=== PATIENT | male | born 1970 | race Caucasian/White ===

== ENCOUNTER → 2017-08-03 | Outpatient (CLI) | payer BC ==
[~2017-08-03] MED LIST: ROSU20TA PO; ZOLP10TA PO
[2017-08-03 12:19] LABS: HEMATOCRIT 45.5 % (42-52); MEAN CORPUSCULAR HEMOGLOBIN 32.9 pg (25-34); MEAN CORPUSCULAR HGB CONC 34.9 g/dl (32-36); PLATELET COUNT 264 K/uL (130-400); RED BLOOD COUNT 4.84 M/uL (4.7-6.1); WHITE BLOOD COUNT 6.88 K/uL (4.8-10.8)
[2017-08-03 13:17] LABS: BLOOD UREA NITROGEN 22 mg/dl (7-18); BUN/CREATININE RATIO 21.4 (10-20); CALCIUM 8.6 mg/dl (8.5-10.1); CARBON DIOXIDE 23 mmol/L (21-32); CHLORIDE 106 mmol/L (98-107); CHOLESTEROL 224 mg/dl (0-200); CREATININE 1.02 mg/dl (0.60-1.40); GLUCOSE,FASTING 97 mg/dl (70-99); SODIUM 140 mmol/L (136-145); TRIGLYCERIDES 226 mg/dl (0-150); VERY LOW DENSITY LIPOPROT CALC 45 mg/dl
[2017-08-03 13:38] LABS: CHOLESTEROL/HDL RATIO 5.6; HDL CHOLESTEROL 40 mg/dl; LDL CHOLESTEROL CALCULATED 139 mg/dl
== END | disposition home or self-care (01) ==
LOC: C.LABPBG 07:29
PROVIDERS: ATTEND Physician Assistant
DX: Z00.00 Encounter for general adult medical examination without abnormal findings (principal); Z13.21 Encounter for screening for nutritional disorder; R53.83 Other fatigue

== ENCOUNTER → 2017-08-31 | Outpatient (CLI) | payer BC ==
--- NOTE | 2017-09-01 06:24 | SPLIT NIGHT TECHNICIAN REPORT ---
[facility] Split Night Polysomnogram - Global Mobility Specialist Report Study date: 08/31/2017 Referring Physician: PETRA MOYA PA-C Name: ELTON SALAZAR Global Mobility Specialist: CHARANJIT Dowell. Date of : 1970 Height: 46 years, Height 5' 10" Sex: Male Weight: 242 lbs Age: 46 BMI: Medications: 34.72 EZETIMIBE 10 MG, LOVASTATIN 10 MG, ZOLPIDEM TARTRATE 10 MG Patient History PATIENT HAS HISTORY OF DEPRESSION, FATIGUE, LOW ENERGY, AND SNORING. ALSO HAS RESTLESS LEGS AND MIAH. PATIENT HAS WORN CPAP IN THE PAST BUT WAS NOT ABLE TO TOLERATE IT. HE IS HERE TODAY FOR AN EVALUATION FOR MIAH. ESS = 12 RM 5 Parameters Monitored NPSG: E1-M2, E2-M1, Fp1-M2, Fp2-M1, F3-M2, F4-M2, F4-M1, C3-M2, C4-M2, C4-M1, O1-M2, O2-M2, O2-M1, T3-M2, T4-M1, P3-M2, P4-M1, CHIN1, CHIN2, HR, EKG, Legs, PFLOW, SNOR, FLOW, CFLOW, Tidal Volume, THOR, ABDO, SpO2, PLTH, CPRESS, ETCO2 Wave, ETCO2, pH SLEEP SUMMARY DATA DIAGNOSTIC TREATMENT Lights Out: 9:20:20 PM 12:41:20 AM Lights On: 12:31:20 AM 5:52:50 AM Total Recording Time (TRT): 191.5 min. 312.0 min. Total Sleep Time (TST): 150.0 min. 219.5 min. NREM Time: 150.0 min. 181.0 min. REM Time: 0.0 min. 38.5 min. Sleep Period Time (SPT): 163.5 min. 280.5 min. Sleep Efficiency (SE): 79 % 70 % Sleep Latency: 27.5 min. 23.5 min. Arousal Index: 25.6 14.2 PAP Treatment Levels: 4, 7, 8, 11, 12 * Optimal Pressure(s) SLEEP STAGING DATA DIAGNOSTIC TREATMENT Duration (min) TST % Duration (min) TST % Stage Wake: 41.0 min. -- 92.5 min. -- WASO: 13.5 min. -- 61.0 min. -- NREM: 150.0 min. 100 % 181.0 min. 82 % Stage N1: 16.5 min. 11 % 39.5 min. 18 % Stage N2: 133.5 min. 89 % 141.5 min. 64 % Stage N3: 0.0 min. 0 % 0.0 min. 0 % REM: 0.0 min. 0 % 38.5 min. 18 % POSITIONAL DATA Event Count Index Event Count Index Supine: 84 50.6 4 2.1 Supine NREM: 84 50.6 4 2.6 Supine REM: N/A N/A 0 0 Non-Supine: 7 8.3 11 4.9 Non-Supine NREM: 7 8.3 10 5.4 Non-Supine REM: N/A N/A 1 2.6 AROUSAL SUMMARY DATA: Event Count Index Event Count Index Apnea Arousals: 2 3.6 0 0.3 Hypopnea Arousals: 11 4.4 5 1.4 Snore Arousals: 10 4.0 1 0.3 PLM Arousals: 27 10.8 7 1.9 Non-Specific Arousals: 12 4.8 38 10.4 Total Arousals: 64 25.6 52 14.2 MYOCLONUS (PLM) Event Count Index Event Count Index PLM: 234 93.6 38 10.4 PLM AROUSAL: 27 10.8 7 1.9 PLM W/O AROUSAL 234 93.6 31 8.5 PLM W/RESP EVENT 28 0.0 2 0.0 MYOCLONUS (PLM) Event Count Index Event Count Index LM: 5 20.4 12 3.3 LM AROUSAL: 5 2.0 2 0.5 LM W/O AROUSAL LM W/RESP EVENT LM NON SPECIFIC 205 82.0 39 10.7 HEART RATE DATA DIAGNOSTIC TREATMENT Sleep (bpm): 73 68 REM (bpm): N/A 94 NREM (bpm): 89 93 Tachycardia Count: 0 0 Tachycardia Duration: 0.00 0 Bradycardia Count: 0 0 Bradycardia Duration: 0.00 0 DIAGNOSTIC PORTION TREATMENT PORTION RESPIRATORY DATA Event Count Index Event Count Index AHI: -- 36.4 -- 3.8 RDI: -- 36.4 -- 4 Obstructive Apnea: 9 3.6 0 0.0 Central Apnea: 0 0.0 1 0.3 Mixed Apnea: 0 0.0 0 0.0 Hypopnea: 82 32.8 13 3.6 RERA: 0 0.0 1 0.3 Total Apneas: 9 3.6 1 0.3 RESPIRATORY DATA REM NREM SLEEP REM NREM SLEEP Supine Position: Obstructive Apneas: N/A 9 9 0 0 0 Central Apneas: N/A 0 0 0 0 0 Mixed Apneas: N/A 0 0 0 0 0 Hypopneas: N/A 75 75 0 3 3 RERA N/A 0 0 0 1 1 Total Supine Events: N/A 84 84 0 4 4 Supine AHI: N/A 50.6 50.6 0 2.6 2.1 Supine RDI: N/A 50.6 50.6 0.0 3.4 2.8 REM NREM SLEEP REM NREM SLEEP Non-Supine Position: Obstructive Apneas: N/A 0 0 0 0 0 Central Apneas: N/A 0 0 1 0 1 Mixed Apneas: N/A 0 0 0 0 0 Hypopneas: N/A 7 7 0 10 10 RERA N/A 0 0 0 0 0 Total Supine Events: N/A 7 7 1 10 11 Supine AHI: N/A 8.3 8.3 2.6 5.4 4.9 Supine RDI: N/A 8.3 8.3 2.6 5.4 4.9 OXYGEN DESTAURATION DATA: Event Count Index Event Count Index REM Desaturations: N/A N/A 0 0.0 NREM Desaturations: 93 37.2 15 5.0 SNORE DATA DIAGNOSTIC TREATMENT Snore Time: 33.6 1:04:50 AM Snore TST%: 12 1 Snore Arousal Count: 10 1 Snore Arousal Index: 4.0 0.3 Desaturation Event Summary: Minimum %SpO2 Event Count Mean/Min/Max Duration(sec.) Desaturation Index % Time In Bed > 90 106 21.9 / 8.5 / 54.3 28.5 61.6 86 - 90 56 18.5 / 8.5 / 33.5 25.8 35.9 81 - 85 0 N/A 0.0 2.3 76 - 80 0 N/A 0.0 0.2 71 - 75 0 N/A 0.0 0.0 66 - 70 0 N/A 0.0 0.0 61 - 65 0 N/A 0.0 0.0 56 - 60 0 N/A 0.0 0.0 51 - 55 0 N/A 0.0 0.0 < 50 0 N/A 0.0 0.0 OXYGEN SATURATION DATA DIAGNOSTIC TREATMENT SpO2 Mean Sleep: 89 % 93 % SpO2 Mean REM: N/A % 94 % SpO2 Mean NREM: 89 % 93 % SpO2 Minimum Sleep: 79 % 86 % SpO2 Minimum REM: N/A % 93 % SpO2 Minimum NREM: 79 % 86 % Time Below 90% (TST): 80.3 1.5 Time Below 88% (TST): 22.2 0.3 Total REM NREM Awake <50% 0.0 min. 0.0 min. 0.0 min. 0.0 min. 51 - 60% 0.0 min. 0.0 min. 0.0 min. 0.0 min. 61 - 70% 0.0 min. 0.0 min. 0.0 min. 0.0 min. 71 - 80% 0.6 min. 0.0 min. 0.5 min. 0.1 min. 81 - 90% 138.5 min. 0.0 min. 109.9 min. 28.6 min. 91 - 100% 223.5 min. 8.5 min. 139.8 min. 75.2 min. Average 91 94 91 92 Minimum SpO2 79 93 79 80 Desaturation Event Index 15.3 0.0 19.6 9.0 # Desat. Events below 89% 91 N/A 89 2 Time(%) with Saturation below 89% 14.7 0.0 13.2 1.5 Time(min.) with Saturation below 89% 53.2 0.0 47.7 5.5 Recording Global Mobility Specialist Comments: Mr. Salazar slept in the right, left and supine positions. No cardiac arrhythmia noted. Leg movements noted. No bruxism noted. Snoring was noted and scored as a 3 on a scale of 1 through 5. (0=no snoring, 5=snoring loud enough to be heard through a closed door or down the [address]) At 12:31 AM Mr. Salazar has met specific Split-Night criteria during the diagnostic portion of this study. CPAP was initiated at +4 CMH2O and up-titrated to an optimal level of +12VUB6O, which nearly eliminated all respiratory events and snoring. A Resmed Air touch F20 full face size large mask was used during titration Mr. Salazar awoke to use the restroom 0 times during the night. Mr. Salazar stated I slept as well as I do when I am in my own bed. The final report will be interpreted and signed by a sleep physician. The completed physician report will then be placed in the patient medical record. Therapy Event: Therapy (cm H20) 0 4 7 8 11 12 Total Time at Pressure (min.) 191.0 5.7 43.1 19.5 142.5 100.8 TST at Pressure (min.) 150.0 0.0 16.2 7.3 120.2 75.8 # Periods 1 1 1 1 1 1 Sleep Onset (min.) 27.5 N/A 17.8 0.0 3.8 0.0 REM Onset (min.) N/A N/A N/A N/A 96.8 N/A Sleep Efficiency % 78 0 37 37 84 75 Wakefulness (%) 21.5 100.0 62.3 62.8 15.6 24.8 Wakefulness (min.) 41.0 5.7 26.8 12.2 22.3 25.0 NREM 1 (%) 8.6 0.0 25.5 12.8 12.8 7.7 NREM 1 (min.) 16.5 0.0 11.0 2.5 18.2 7.8 NREM 2 (%) 69.9 0.0 12.2 24.4 44.6 67.5 NREM 2 (min.) 133.5 0.0 5.2 4.8 63.5 68.0 NREM 3 (%) 0.0 0.0 0.0 0.0 0.0 0.0 NREM 3 (min.) 0.0 0.0 0.0 0.0 0.0 0.0 REM (%) 0.0 0.0 0.0 0.0 27.0 0.0 REM (min.) 0.0 0.0 0.0 0.0 38.5 0.0 # Arousals 64 N/A 13 8 19 12 Arousal Index 25.6 N/A 48.0 66.1 9.5 9.5 # Snore 1,398 N/A 5 3 10 0 Snore Index 559.2 N/A 18.5 24.8 5.0 0.0 AHI 36.4 N/A 14.8 57.9 1.5 0.0 AHI Supine 50.6 N/A 45.5 N/A 0.0 0.0 AHI Non-Supine 8.3 N/A 4.9 57.9 1.8 0.0 NREM AHI 36.4 N/A 14.8 57.9 1.5 0.0 REM AHI N/A N/A N/A N/A 1.6 N/A RDI 36.4 N/A 14.8 57.9 1.5 0.8 # Obstructive 9 N/A 0 0 0 0 # Central Ap 0 N/A 0 0 1 0 # Mixed 0 N/A 0 0 0 0 # Hypopneas 82 N/A 4 7 2 0 RERAS 0 N/A 0 0 0 1 Total Respiratory Events 91 N/A 4 7 3 1 Time Below SpO2 89.00% (min.) 47.4 0.0 0.1 0.3 0.0 0.0 Mean NREM SpO2 (%) 89 N/A 93 93 94 0 Mean REM SpO2 (%) N/A N/A N/A N/A 94 N/A Mean Sleep SpO2 (%) 89 N/A 93 93 94 0 Min NREM SpO2 (%) 79 N/A 86 87 91 0 Min REM SpO2 (%) N/A N/A N/A N/A 93 N/A Position Supine (min.) 99.7 0.0 4.0 0.0 19.4 61.3 Position Non-supine (min.) 50.3 0.0 12.3 7.3 100.8 14.5 LM Index Sleep 114.0 N/A 70.2 82.7 8.0 4.0 LM Index NREM 114.0 N/A 70.2 82.7 11.7 4.0 LM Index REM N/A N/A N/A N/A 0.0 N/A Mean Heart Rate (bpm) 73 N/A 69 67 67 0 Min Heart Rate (bpm) 62 N/A 61 62 60 0
== END | disposition home or self-care (01) ==
LOC: C.NEUR 20:00
PROVIDERS: ATTEND Physician Assistant
DX: R53.83 Other fatigue (principal); G47.30 Sleep apnea, unspecified

== ENCOUNTER → 2017-12-08 | Outpatient (CLI) | payer BC ==
[~2017-12-08] VITALS: Ht 177.2 cm; Wt 103.6 kg
[2017-12-08 13:56] VITALS: BP 112/77; PULSE 79; Ht 177.2 cm; Wt 103.6 kg
== END | disposition home or self-care (01) ==
LOC: C.NEUR 13:22
PROVIDERS: ATTEND Internal Medicine Pulmonary Disease
DX: G47.30 Sleep apnea, unspecified (principal); G47.00 Insomnia, unspecified; R53.83 Other fatigue; F32.9 Major depressive disorder, single episode, unspecified

== ENCOUNTER 2020-01-15 13:54 | Inpatient (IN) ==
--- NOTE | 2020-01-15 14:11 | Emergency Department Note ---
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 Echo demonstrated normal LV function. He continues to have a Holter monitor with analysis pending. Of note, the patient does report approximately 9 days of a chronic dry cough with the constant sensation of always having to cough for which she was treated with levofloxacin by his PCP and is currently on Tessalon Perles but denies any improvement. 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 However, he denies any fevers, chills or body aches or flulike illness. Denies nausea, vomiting, diarrhea, urinary symptoms. Patient is not a smoker. On arrival the patient is in no acute distress, afebrile with stable vital signs. He does intermittently exhibit a dry cough with a subtle underlying wheeze however lungs are CTAB. EKG demonstrates no overt ST elevation or depression however T wave inversion in lead III and aVF of which aVF appears new compared to outpatient EKG on 11/20/2019. Chest x-ray is negative for acute process. WBC, H/H and platelets within normal limits. Chemistry without acidosis. LFTs unremarkable. Electrolytes unremarkable. Troponin elevated at 1.040. D-dimer within normal limits however given troponin elevation CT of the chest was performed and negative for PE or pneumonia. On reevaluation the patient reports that his symptoms have improved and are barely present. I did review the patient's results including his elevated troponin he was agreeable with plan for admi ssion. He was ordered for a full dose aspirin. Will defer heparin at this time and continue to trend troponins. The patient's repeat EKG was essentially unchanged with no overt ST elevation or depression. Unclear etiology to the patient's symptoms and elevated troponin at this time. A delta 3-hour troponin was ordered and is pending. Patiently, COVID-19 PCR was also ordered given his possible exposures as a military police officer. Case was discussed with [facility] with [facility] hospitalist who will evaluate the patient for admission. Triage Nursing notes reviewed and agree them. Prior medical records reviewed Vital Signs: reviewed and remarkable for HTN. Differential diagnosis: Cardiac ischemia, aortic dissection, pulmonary embolism, pneumothorax, pneumonia, pericarditis, myocarditis, esophageal rupture, GERD, cholecystitis, pancreatitis, musculoskeletal, as well as other pathologies. ER treatment provided: See below. Diagnostics interpreted by me: ECG: Normal sinus rhythm, 86 bpm, normal axis, no ectopy, T wave inversion in lead III and aVF, no overt ST elevation or depression, QTC 437, QRS 92. Cardiac Monitoring: An order for continuous cardiac monitoring was placed and demonstrated normal sinus rhythm, 86 bpm, no ectopy. Laboratory studies: See below Imaging studies: XR chest 1V portable HISTORY: Atypical Chest Pain COMPARISON: None. FINDINGS: The lungs are clear. Cardiac silhouette is normal in size. No pleural effusions. No pneumothorax. IMPRESSION: No acute process. 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 Echo demonstrated normal LV function. He continues to have a Holter monitor with analysis pending. Of note, the patient does report approximately 9 days of a chronic dry cough with the constant sensation of always having to cough for which she was treated with levofloxacin by his PCP and is currently on Tessalon Perles but denies any improvement. 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 However, he denies any fevers, chills or body aches or flulike illness. Denies nausea, vomiting, diarrhea, urinary symptoms. Patient is not a smoker. ROS: See above HPI for pertinent positives & negatives. A total of 10 systems reviewed and were otherwise negative. PAST MEDICAL HISTORY:See Below PAST SURGICAL HISTORY:See Below FAMILY HISTORY:See Below SOCIAL HISTORY:See Below HOME MEDICATIONS:See Below ALLERGIES:See Below VITALS:See Below PHYSICAL EXAMINATION: GENERAL: Awake, alert, well-appearing, in no distress HENT: Normocephalic, atraumatic. Oropharynx unremarkable. EYES: Normal conjunctiva. Sclera non-icteric. NECK: Supple. No nuchal rigidity. FROM. No JVD. RESPIRATORY: Clear to auscultation. CARDIAC: Regular rate, normal rhythm. Extremities warm and well perfused. Pulses equal. ABDOMEN: Soft, non-distended. No tenderness to palpation. No rebound or guarding. No masses. RECTAL: Deferred. MUSCULOSKELETAL: Chest examination reveals no tenderness. The back is symmetrical on inspection without obvious abnormality. There is no CVA tenderness to palpation. No joint edema. LOWER EXTREMITIES: Calves are equal size bilaterally and non-tender. No edema. No discoloration. NEURO: Normal sensorium. No sensory or motor deficits noted. SKIN: No rash or jaundice noted. Jose Bonilla MD Past Med/Surg History Medical History (Updated 01/15/20 @ 20:55 by Jose Bonilla MD) Benign essential hypertension (Acute) Hyperlipidemia (Acute) Lyme disease Obstructive sleep apnea (Acute) Surgical History S/P left knee arthroscopy S/P ORIF (open reduction internal fixation) fracture left femur Family History Grandfather (Paternal) Stroke Father Coronary heart disease Mother Osteoarthritis Social History Preferred Language: Pashto Communication Ability: Effective Visual Impairment: No Limitations Hearing Ability: Normal Circle Beveler Required: No Beliefs That Will Affect Care: Cheondoism Current Living Situation: Alone current occupational status: employed Other Information That Helps Us Care for You: No Feels Safe at Home: Yes Safety Concerns: Feels Safe At This Time Smoking Status: Never smoker Do You Dip or Chew Tobacco: No ; Second Hand Exposure: No ; Tobacco Cessation Education Requested by Patient: No Hx Alcohol Use: Yes Alcohol type: beer Hx Substance Use: No Childhood Exposure to Second-Hand Smoke: No caffeine: Yes (coffee) Dental Care, Regularly: Yes Physical Activity Frequency: 3-4 Times per Week Seatbelt Use: always Sunscreen Use: Yes Allergies Allergies Allergy/AdvReac Type Severity Reaction Status Date / Time No Known Drug Allergies Allergy Unknown Verified 01/15/20 14:25 Home Meds Home Medications Medication Instructions Recorded Confirmed lisinopril 10 mg PO DAILY 01/15/20 01/15/20 Previous Rx's Medication Instructions Recorded zolpidem 10 mg tablet 10 mg PO HS #30 tab 09/19/19 albuterol sulfate 90 mcg/actuation 1 - 2 puffs INH Q6H PRN #18 gm 12/03/19 aerosol inhaler lovastatin 20 mg tablet 20 mg PO DAILY #30 tab 12/10/19 pantoprazole 40 mg tablet,delayed 40 mg PO DAILY #90 tab 12/12/19 release guaifenesin 400 mg tablet 400 mg PO QID 7 Days #28 tab 01/07/20 loratadine 10 mg tablet 10 mg PO DAILY PRN #30 tab 01/07/20 benzonatate 200 mg capsule 200 mg PO TID PRN #20 cap 01/13/20 Results & Data (ED) Vital Signs Vital Signs - 24 hr 01/15/20 13:57 01/15/20 14:25 01/15/20 14:48 Temperature 36.7 C Temperature Source Oral Pulse Rate 96 H Pulse Rate from SpO2 Sensor Respiratory Rate 20 Blood Pressure 164/112 H Blood Pressure Mean 129 Blood Pressure Position Sitting Pulse Oximetry 98 96 95 Oxygen Delivery Method Room Air Room Air Room Air Sepsis Recent Fever Within 48 Hours No Sepsis New/Unexplained Change in Mental Status No Sepsis Action Taken by Nursing No Action Required 01/15/20 15:17 01/15/20 15:30 01/15/20 16:00 Temperature Temperature Source Pulse Rate 96 H 86 Pulse Rate from SpO2 Sensor 93 H 101 H 87 Respiratory Rate 20 22 22 Blood Pressure 146/93 H 128/97 131/90 Blood Pressure Mean 103 101 105 Blood Pressure Position Pulse Oximetry 97 98 94 Oxygen Delivery Method Sepsis Recent Fever Within 48 Hours Sepsis New/Unexplained Change in Mental Status Sepsis Action Taken by Nursing 01/15/20 16:30 01/15/20 17:02 01/15/20 17:30 Temperature Temperature Source Pulse Rate 87 84 85 Pulse Rate from SpO2 Sensor 86 85 85 Respiratory Rate 16 15 19 Blood Pressure 128/84 149/92 H 147/98 H Blood Pressure Mean 89 101 124 Blood Pressure Position Pulse Oximetry 95 98 98 Oxygen Delivery Method Sepsis Recent Fever Within 48 Hours Sepsis New/Unexplained Change in Mental Status Sepsis Action Taken by Nursing 01/15/20 18:00 Temperature Temperature Source Pulse Rate 84 Pulse Rate from SpO2 Sensor 84 Respiratory Rate 13 Blood Pressure 142/87 H Blood Pressure Mean 97 Blood Pressure Position Pulse Oximetry 95 Oxygen Delivery Method Sepsis Recent Fever Within 48 Hours Sepsis New/Unexplained Change in Mental Status Sepsis Action Taken by Nursing Laboratory Data Attestation: I reviewed the patient's lab results. Result diagrams: 01/15/20 15:17 01/15/20 15:17 Lab Results 01/15/20 01/15/20 01/15/20 Range/Units 15:17 15:17 15:17 WBC 9.61 (4.8-10.8) K/uL RBC 5.00 (4.7-6.1) M/uL Hgb 16.4 (14.0-18.0) g/dL Hct 47.3 (42-52) % MCV 94.6 (80-100) fL MCH 32.8 (25-34) pg MCHC 34.7 (32-36) g/dL RDW Std Deviation 44.2 (36.4-46.3) fL RDW Coeff of Miller 12.8 (11.5-14.5) % Plt Count 276 (130-400) K/uL MPV 10.3 (7.4-10.4) fL Immature Gran % (Auto) 0.3 % Neut % (Auto) 71.3 % Lymph % (Auto) 17.0 % Troup % (Auto) 7.3 % Eos % (Auto) 3.7 % Baso % (Auto) 0.4 % Immature Gran # (Auto) 0.03 H (0.00-0.02) K/uL Neut # (Auto) 6.85 H (1.4-6.5) K/uL Lymph # (Auto) 1.63 (1.2-3.4) K/uL Troup # (Auto) 0.70 H (0.11-0.59) K/uL Eos # (Auto) 0.36 (0-0.5) K/uL Baso # (Auto) 0.04 (0-0.2) K/uL PT 11.0 (9.0-12.0) Seconds INR 1.0 (0.9-1.1) APTT 29.7 (21.0-31.0) Seconds PTT Ratio 1.1 D-Dimer < 190 (0-500) ug/L FEU Sodium 139 (136-145) mmol/L Potassium 3.7 (3.5-5.1) mmol/L Chloride 104 (98-107) mmol/L Carbon Dioxide 28 (21-32) mmol/L Anion Gap 7.0 (3-11) BUN 16 (7-18) mg/dl Creatinine 1.12 (0.6-1.4) mg/dl Est Cr Clr Drug Dosing 96.3 ml/min Est GFR ( Amer) 88.3 Est GFR (Non-Af Amer) 76.2 BUN/Creatinine Ratio 14.4 (10-20) Glucose 165 H (70-99) mg/dl Calcium 9.1 (8.5-10.1) mg/dl Phosphorus 3.3 (2.5-4.9) mg/dl Magnesium 2.1 (1.8-2.4) mg/dl Total Bilirubin 0.6 (0.2-1) mg/dl Direct Bilirubin 0.1 (0-0.2) mg/dl AST 22 (15-37) U/L ALT 37 (12-78) U/L Alkaline Phosphatase 39 L (45-117) U/L Troponin I 1.040 H* (0-0.045) ng/ml Total Protein 7.3 (6.4-8.2) gm/dl Albumin 4.2 (3.4-5.0) gm/dl Globulin 3.1 (2.5-4.0) gm/dl Albumin/Globulin Ratio 1.4 (0.9-2) Lipase 97 (73-393) U/L Influenza Type A (PCR) (Neg) Influenza Type B (PCR) (Neg) 01/15/20 Range/Units 15:17 WBC (4.8-10.8) K/uL RBC (4.7-6.1) M/uL Hgb (14.0-18.0) g/dL Hct (42-52) % MCV (80-100) fL MCH (25-34) pg MCHC (32-36) g/dL RDW Std Deviation (36.4-46.3) fL RDW Coeff of Miller (11.5-14.5) % Plt Count (130-400) K/uL MPV (7.4-10.4) fL Immature Gran % (Auto) % Neut % (Auto) % Lymph % (Auto) % Troup % (Auto) % Eos % (Auto) % Baso % (Auto) % Immature Gran # (Auto) (0.00-0.02) K/uL Neut # (Auto) (1.4-6.5) K/uL Lymph # (Auto) (1.2-3.4) K/uL Troup # (Auto) (0.11-0.59) K/uL Eos # (Auto) (0-0.5) K/uL Baso # (Auto) (0-0.2) K/uL PT (9.0-12.0) Seconds INR (0.9-1.1) APTT (21.0-31.0) Seconds PTT Ratio D-Dimer (0-500) ug/L FEU Sodium (136-145) mmol/L Potassium (3.5-5.1) mmol/L Chloride (98-107) mmol/L Carbon Dioxide (21-32) mmol/L Anion Gap (3-11) BUN (7-18) mg/dl Creatinine (0.6-1.4) mg/dl Est Cr Clr Drug Dosing ml/min Est GFR ( Amer) Est GFR (Non-Af Amer) BUN/Creatinine Ratio (10-20) Glucose (70-99) mg/dl Calcium (8.5-10.1) mg/dl Phosphorus (2.5-4.9) mg/dl Magnesium (1.8-2.4) mg/dl Total Bilirubin (0.2-1) mg/dl Direct Bilirubin (0-0.2) mg/dl AST (15-37) U/L ALT (12-78) U/L Alkaline Phosphatase (45-117) U/L Troponin I (0-0.045) ng/ml Total Protein (6.4-8.2) gm/dl Albumin (3.4-5.0) gm/dl Globulin (2.5-4.0) gm/dl Albumin/Globulin Ratio (0.9-2) Lipase (73-393) U/L Influenza Type A (PCR) Neg for Influ A (Neg) Influenza Type B (PCR) Neg for Influ B (Neg) Administered Medications Discontinued Medications Aspirin (Aspirin) 324 mg PO NOW STA Stop: 01/15/20 17:40 Last Admin: 01/15/20 18:24 Dose: 324 mg Documented by: [id number] Dexamethasone Sodium Phosphate (Decadron Pf) 10 mg IV NOW ONE Stop: 01/15/20 14:43 Last Admin: 01/15/20 15:19 Dose: 10 mg Documented by: [id number] Sodium Chloride (Nss 1000ml) 1,000 mls @ 999 mls/hr IV .Q1H1M ONE Stop: 01/15/20 15:42 Last Infusion: 01/15/20 16:20 Dose: 0 mls/hr Documented by: [id number] Admin: 01/15/20 15:19 Dose: 999 mls/hr Documented by: [id number] Acetaminophen (Ofirmev) 1,000 mg in 100 mls @ 400 mls/hr IV NOW STA Stop: 01/15/20 14:56 Last Infusion: 01/15/20 15:35 Dose: 0 mls/hr Documented by: [id number] Admin: 01/15/20 15:19 Dose: 400 mls/hr Documented by: [id number] Ioversol (Optiray 320 125ml) 120 ml IV ONCE PRN PRN Reason: Interaction Checking Stop: 01/19/20 16:47 Last Admin: 01/15/20 16:49 Dose: 120 ml Documented by: [id number] Blood Pressure Blood Pressure Findings: Elevated blood pressure Discharge Plan Visit Data Chief Complaint: Chest Pain Stated Complaint: chest pain ED Provider: Jose Bonilla Discharge Problem: Elevated troponin, Atypical chest pain, Cough, History of hypertension Discharge Instructions Interventions: ED Discharge Assessment Last Done: 01/15/20 19:06
[2020-01-15] MEDS ORDERED: ACETAMINOPHEN 1,000 MG/100 ML VIAL IV STA (14:42)
[2020-01-15] MEDS ORDERED: DEXAMETHASONE **PF** INJ 10 MG/ML VIAL IV ONE (14:42)
[2020-01-15] MEDS ORDERED: SODIUM CHLORIDE 0.9% 1000ML 1,000 ML IV ONE (14:42)
--- NOTE | 2020-01-15 15:28 | Electrocardiogram Report ---
Test Reason : Blood Pressure : / mmHG Vent. Rate : 086 BPM Atrial Rate : 086 BPM P-R Int : 158 ms QRS Dur : 092 ms QT Int : 366 ms P-R-T Axes : 022 028 -15 degrees QTc Int : 437 ms Normal sinus rhythm Inferior infarct , age undetermined Abnormal ECG No previous ECGs available Confirmed by Kelvin Padilla ([id number]) on 01/15/2020 3:28:05 PM Referred By: Confirmed By:Kelvin Padilla
[2020-01-15 15:37] LABS: Basophils # (auto) 0.04 K/uL (0-0.2); Basophils % (auto) 0.4 %; Eosinophils # (auto) 0.36 K/uL (0-0.5); Eosinophils % (auto) 3.7 %; Hematocrit (blood only) 47.3 % (42-52); Hemoglobin 16.4 g/dL (14.0-18.0); Immature Granulocytes # (auto) 0.03 K/uL (0.00-0.02); Immature Granulocytes % (auto) 0.3 %; Lymphocytes # (auto) 1.63 K/uL (1.2-3.4); Mean Corpuscular Hemoglobin 32.8 pg (25-34); Mean Corpuscular Hgb Conc 34.7 g/dL (32-36); Mean Corpuscular Volume 94.6 fL (80-100); Mean Platelet Volume 10.3 fL (7.4-10.4); Monocytes % (auto) 7.3 %; Neutrophils # (auto) 6.85 K/uL (1.4-6.5); Neutrophils % (auto) 71.3 %; Platelet Count 276 K/uL (130-400); RDW Coefficient of Variation 12.8 % (11.5-14.5); RDW Standard Deviation 44.2 fL (36.4-46.3); White Blood Count 9.61 K/uL (4.8-10.8)
--- NOTE | 2020-01-15 15:38 | XRay Report ---
XR chest 1V portable HISTORY: Atypical Chest Pain COMPARISON: None. FINDINGS: The lungs are clear. Cardiac silhouette is normal in size. No pleural effusions. No pneumot horax. IMPRESSION: No acute process. ACT 112: Negative or not required by law. Electronically signed by: Shahram Hines M.D. 01/15/2020 3:36 PM
[2020-01-15 15:59] LABS: Albumin Level 4.2 gm/dl (3.4-5.0); BUN Creatinine Ratio 14.4 (10-20); Bilirubin Direct 0.1 mg/dl (0-0.2); Calcium 9.1 mg/dl (8.5-10.1); Creatinine Clr Calc Pharmacy 96.3 ml/min; Est GFR (African American) 88.3; Est GFR (Non-African American) 76.2; Magnesium 2.1 mg/dl (1.8-2.4); Potassium 3.7 mmol/L (3.5-5.1)
[2020-01-15 16:06] LABS: Albumin Globulin Ratio 1.4 (0.9-2); Bilirubin,Total 0.6 mg/dl (0.2-1); Globulin 3.1 gm/dl (2.5-4.0); Phosphorus 3.3 mg/dl (2.5-4.9); Total Protein 7.3 gm/dl (6.4-8.2); Troponin I 1.04 ng/ml (0-0.045)
[2020-01-15 16:16] LABS: Influenza A virus by PCR Neg for Influ A (Neg); Influenza B virus by PCR Neg for Influ B (Neg)
[2020-01-15 16:18] LABS: D Dimer < 190 ug/L FEU (0-500); Partial Thromboplastin Ratio 1.1; Partial Thromboplastin Time 29.7 Seconds (21.0-31.0)
[2020-01-15] MEDS ORDERED: OPTIRAY 320 125ml IV PRN (16:48)
--- NOTE | 2020-01-15 17:16 | CT Scan Report ---
CT ANGIOGRAPHY OF THE CHEST, PULMONARY EMBOLUS PROTOCOL CLINICAL HISTORY: PE - elevated troponin, Covid pending COMPARISON STUDY: Chest radiograph performed earlier today. TECHNIQUE: Following IV administration of 120 mL of Optiray-[id number], helical axial images of the chest we re obtained utilizing the pulmonary embolus protocol. Maximal intensity projections and sagittal and coronal reformats were viewed on an independent 3D workstation. IV contrast was administered withou t complication. Automated exposure control was utilized for the study. A dose lowering technique wa s utilized adhering to the principles of ALARA. CT DOSE: 535.32 mGycm FINDINGS: No pulmonary emboli are identified. There is no evidence for thoracic aortic dissection. T he size of the heart is normal. There is no pericardial effusion. No enlarged axillary, mediastinal o r hilar lymph nodes are present. The central airways are patent. There is no pneumothorax or pleural effusion. There is no consolidation. There are no suspicious pulmonary nodules. Several thyroid nodul es measure up to 1.8 cm. Bony thorax and upper abdomen are unremarkable. IMPRESSION: 1. No pulmonary emboli identified. 2. No acute findings within the chest. ACT 112: Negative or not required by law. Electronically signed by: Blu Malin M.D. 01/15/2020 5:15 PM
[2020-01-15] MEDS ORDERED: ASPIRIN CHEW 324 MG PO STA (17:39)
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
[2020-01-15] MEDS ORDERED: BENZONATATE 100 MG CAPSULE PO PRN (19:45)
[2020-01-15] MEDS ORDERED: ALBUTEROL HFA 8 GM INHALER INH PRN (19:45)
[2020-01-15] MEDS ORDERED: ALUMINUM/MAGNESIUM SUSP 30 ML UDC PO PRN (19:45)
[2020-01-15] MEDS ORDERED: HEPARIN SODIUM/DEXTROSE 25,000 UNITS/500 ML BAG IV SCH (19:45)
[2020-01-15] MEDS ORDERED: Heparin Adult STANDARD Wt-Based Dextrose 5% 25,000 units/500 mL IV SCH (20:00)
[2020-01-15] MEDS ORDERED: METOPROLOL TARTRATE 25 MG TAB PO ONE (20:15)
[2020-01-15] MEDS ORDERED: HEPARIN IV BOLUS 7,000 UNITS in SYRINGE 0 ML IV ONE (20:15)
[2020-01-15] MEDS: METOPROLOL TARTRATE 25 MG TAB PO SCH (21:12)
[2020-01-15] MEDS: SODIUM CHLORIDE 0.65% NA SOLN 45 ML (OCEAN) SCH (21:12)
[2020-01-15] MEDS: FLUTICASONE PROPIONATE NA SPR 16 GM BTL SCH (21:16)
[2020-01-15] MEDS: ZOLPIDEM TARTRATE 10 MG TAB PO PRN (21:47)
[2020-01-16 03:56] LABS: Hematocrit (blood only) 44.3 % (42-52); Hemoglobin 15.7 g/dL (14.0-18.0); Mean Corpuscular Hemoglobin 33.3 pg (25-34); Mean Corpuscular Hgb Conc 35.4 g/dL (32-36); Mean Corpuscular Volume 93.9 fL (80-100); Mean Platelet Volume 10.3 fL (7.4-10.4); Platelet Count 306 K/uL (130-400); RDW Coefficient of Variation 12.6 % (11.5-14.5); RDW Standard Deviation 43.4 fL (36.4-46.3); Red Blood Count 4.72 M/uL (4.7-6.1); White Blood Count 16.28 K/uL (4.8-10.8)
[2020-01-16 04:13] LABS: BUN Creatinine Ratio 15.3 (10-20); Calcium 8.8 mg/dl (8.5-10.1); Creatinine Clr Calc Pharmacy 97.9 ml/min; Est GFR (African American) 91.2; Est GFR (Non-African American) 78.7; Magnesium 1.9 mg/dl (1.8-2.4); Potassium 4.1 mmol/L (3.5-5.1)
[2020-01-16 04:25] LABS: Partial Thromboplastin Time 84.6 Seconds (21.0-31.0); Troponin I 19.2 ng/ml (0-0.045)
[2020-01-16] MEDS: PANTOprazole 40 MG TAB PO SCH (08:22)
[2020-01-16] MEDS: lisinopriL 10 MG TAB PO SCH (08:22)
[2020-01-16] MEDS: METOPROLOL TARTRATE 25 MG TAB PO SCH ×2 (08:22→21:16)
[2020-01-16] MEDS: FLUTICASONE PROPIONATE NA SPR 16 GM BTL SCH ×2 (08:22→21:16)
[2020-01-16] MEDS: ATORVASTATIN 40 MG TAB PO SCH (08:23)
[2020-01-16] MEDS: SODIUM CHLORIDE 0.65% NA SOLN 45 ML (OCEAN) SCH ×2 (08:24→21:16)
[2020-01-16] MEDS ORDERED: LOVASTATIN 20 MG TAB PO SCH ×2 (09:00)
[2020-01-16] MEDS ORDERED: fentaNYL citrate 100 MCG/2 ML VIAL ONE ×2 (09:19→14:03)
[2020-01-16] MEDS ORDERED: MIDAZOLAM HCL 1 MG/ML 2ML VIAL ONE ×2 (09:19→14:03)
[2020-01-16] MEDS ORDERED: NITROGLYCERIN/D5W 100MCG/ML 20ML SYR ONE (09:20)
[2020-01-16] MEDS ORDERED: HEPARIN (PORCINE) 1000 UNIT/ML 10 ML (CATH LAB USE ONLY) ONE (09:21)
[2020-01-16] MEDS ORDERED: TICAGRELOR 90 MG TAB PO ONE ×2 (10:09→15:05)
[2020-01-16] MEDS ORDERED: NOREPINEPHRINE BITARTRATE 1 MG/ML 4 ML VIAL (CATH LAB USE ONLY) ONE (10:29)
--- NOTE | 2020-01-16 10:49 | Cardiology Consultation ---
Date of Consultation January 16, 2020 Assessment & Plan (1) Elevated troponin: Mr. Salazar is a 49-year-old male with a history of Hypertension, Dyslipidemia (on nursing home statin therapy), Moderate Concentric LVH, Sleep Apnea on CPAP, Anxiety/Depression, and Insomnia who has been experiencing an intermittent, non exertional, and atypical chest pressure / squeezing pain off and on for the past 6 to weeks. His exercise and exertional tolerances have remained stable, and his chest discomfort is not worsened with exertion or activity. It is not positional nor is it pleuritic. He has no associated symptoms with the chest discomfort. 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 He had a Negative Stress Echocardiogram on 12/11/2019 at 88% maximum predicted heart rate, and demonstrated good exercise tolerance during that stress test. His cardiac risk factors include gender, hypertension, dyslipidemia, and a strong family history of CAD. As his initial Troponin I was elevated and has trended up to 19.200 ng/ml -- further evaluation is required. Patient will undergo Cardiac Catheterization / Coronary Angiography later today. He is currently NPO. We discussed the risks, benefits, and potential outcomes cardiac catheterization. We discussed how the procedure is done as well. Patient verbalized understanding of this discussion, and all of his questions were answered to his satisfaction. Recommend the following: -- Continue Atorvastatin and would recommend increasing to 80 mg daily. -- Continue Lopressor 25 mg b.i.d.. -- Continue Lisinopril 10 mg daily. -- Start Aspirin 81 mg daily. -- Further medication adjustments will be made pending cardiac catheterization results. -- Continue Heparin drip for the time being. (2) LVH (left ventricular hypertrophy): -- Maintain a well controlled BP with medications as outlined above. -- Adjust as necessary to maintain a SBP < 130 mmHg. -- Maintain a low-sodium diet. -- Continue aerobic exercise program. (3) Hyperlipidemia: -- Continue Atorvastatin and would recommend increasing to 80 mg daily. (4) Hypertension, essential: Patient was hypertensive on admission, however his BP looks well controlled today. -- Continue antihypertensive medications and adjust accordingly in order to maintain an average SBP between 115 to 130 mmHg. Supervising Physician Co-Signing Physician Notes Patient seen and examined. Agree with assessment and plan as outlined by ISAC Mccauley. Covid-19 negative. Plan to proceed to quality assurance lab technician for coronary angiography. Discussed risk, benefits and alternatives of procedure with patient. History of Present Illness Reason for Consultation: -- Elevated Troponin I. -- Atypical Chest Pain x 6 to 7 weeks. Requesting Physician: Devyn Bains MD Attending Physician: Kelvin Padilla MD History of Present Illness Mr. Salazar is a 49-year-old male with a history of Hypertension, Dyslipidemia (on nursing home statin therapy), Moderate Concentric LVH, Sleep Apnea on CPAP, Anxiety/Depression, and Insomnia who has been experiencing an intermittent chest pressure off and on for the past 6 to weeks. Patient is physically active on a daily basis -- he typically hikes up a mountain and his route is approximately 5.5 miles at least every other day, does push-ups, etc -- and his exercise tolerance has been stable during despite the onset of his atypical chest pain. He describes his left chest pain as a pressure or a squeezing pain -- which does not radiate, and is without associated symptoms. He notices it most often when he is at a state of rest. It does not worsen with activities or exercise. He denies any associated nausea, vomiting, diaphoresis, or dyspnea. His chest discomfort is not positional nor is it pleuritic. The chest discomfort can last 1 to 2 hours or longer. Approximately 2 days ago, the patient cut down 2 trees and cleared up the area by himself without chest discomfort or any limiting cardiopulmonary symptoms. What prompted him to come in to the hospital yesterday was a sharp chest pain and his shoulders and upper back were aching -- which he suspected was secondary to all the work he did clearing those trees. He did not have any associated symptoms with this, specifically denying any associated nausea, vomiting, diaphoresis, or dyspnea. Patient reports that he has had sinus congestion, mild cough, and a headache over the past 9 weeks -- and he has been treated with 3 different antibiotic courses as well as prednisone by his PCP. Patient's EKGs thus far show no acute changes. However his troponin I level has trended upward and is > 19 ng/ml. He will have a cardiac catheterization later today. STRESS ECHOCARDIOGRAM 12/11/2019: -- No Evidence of myocardial ischemia by EKG or Echocardiographic criteria. -- Exercised for 9 minutes and 26 seconds on standard Harsha protocol. -- Achieved 88% MPHR and 10.1 MET workload. -- Normal hemodynamic response to exercise. -- Normal LV size, wall motion, and systolic function. -- LVEF at rest 60%. -- Moderate concentric LVH. -- Trace MR. -- Trace PI. -- Normal RV size and function. Allergies Allergy/AdvReac Type Severity Reaction Status Date / Time No Known Drug Allergies Allergy Unknown Verified 01/15/20 14:25 Home Medications Home Medications Medication Instructions Recorded Confirmed Type zolpidem 10 mg tablet 10 mg PO HS #30 tab 09/19/19 01/15/20 Rx albuterol sulfate 90 mcg/actuation 1 - 2 puffs INH Q6H PRN #18 gm 12/03/19 01/15/20 Rx aerosol inhaler lovastatin 20 mg tablet 20 mg PO DAILY #30 tab 12/10/19 01/15/20 Rx pantoprazole 40 mg tablet,delayed 40 mg PO DAILY #90 tab 12/12/19 01/15/20 Rx release guaifenesin 400 mg tablet 400 mg PO QID 7 Days #28 tab 01/07/20 01/15/20 Rx loratadine 10 mg tablet 10 mg PO DAILY PRN #30 tab 01/07/20 01/15/20 Rx benzonatate 200 mg capsule 200 mg PO TID PRN #20 cap 01/13/20 01/15/20 Rx lisinopril 10 mg PO DAILY 01/15/20 01/15/20 History Patient History Medical History Benign essential hypertension (Acute) Hyperlipidemia (Acute) Lyme disease Obstructive sleep apnea (Acute) Surgical History S/P left knee arthroscopy S/P ORIF (open reduction internal fixation) fracture left femur Family History Grandfather (Paternal) Stroke Father Coronary heart disease Mother Osteoarthritis Social History Preferred Language: Russian Communication Ability: Effective Visual Impairment: No Limitations Hearing Ability: Normal 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 Beliefs That Will Affect Care: Confucianist Current Living Situation: Alone current occupational status: employed Other Information That Helps Us Care for You: No Feels Safe at Home: Yes Safety Concerns: Feels Safe At This Time Smoking Status: Never smoker Do You Dip or Chew Tobacco: No ; Second Hand Exposure: No ; Tobacco Cessation Education Requested by Patient: No Hx Alcohol Use: Yes Alcohol type: beer Hx Substance Use: No Childhood Exposure to Second-Hand Smoke: No caffeine: Yes (coffee) Dental Care, Regularly: Yes Physical Activity Frequency: 3-4 Times per Week Seatbelt Use: always Sunscreen Use: Yes Physical Exam Physical Exam: GENERAL: Patient in no acute distress. HEENT: Head is atraumatic, normocephalic. EOM's intact. Facies symmetric. No perioral cyanosis. NECK: No JVD. JVP is at the level of the clavicle sitting upright. Carotid upstrokes are + 2 bilaterally. No bruits are noted. CHEST/LUNGS: Clear to auscultation throughout all lung johns. No wheezes, rales, or crackles. CVS: S1 and S2 are regular without murmurs, gallops, or rubs. PMI is nondisplaced. No lifts, heaves, or thrills. No abdominal aortic or renal bruits. ABDOMINAL EXAM: Bowel sounds are present. No masses, organomegaly, or tenderness. EXTREMITIES: No clubbing or cyanosis. No edema. Intact posterior tibial and radial pulses bilaterally. Rommel's test positive for both ulnar and radial reflow at the right wrist and hand. NEUROLOGIC EXAM: Patient is awake, alert, and oriented. Pleasant and cooperative. Answers questions appropriately. Speech is clear. Normal movement in all 4 extremities. Gait pattern is unremarkable. Cardiac Catheterization is pending. Telemetry monitoring shows sinus rhythm. No arrhythmias noted. Results & Data ([facility]) Vital Signs (Past 12 Hours) Vital Signs Temp Pulse Resp BP Pulse Ox 01/16/20 08:01 36.6 C 88 20 113/68 95 01/16/20 04:05 36.5 C 89 18 118/79 96 01/15/20 23:14 36.4 C L 87 16 113/76 96 Laboratory Results Laboratory Results - last 24 hr 01/15/20 01/15/20 01/15/20 15:17 15:17 15:17 WBC 9.61 RBC 5.00 Hgb 16.4 Hct 47.3 MCV 94.6 MCH 32.8 MCHC 34.7 RDW Std Deviation 44.2 RDW Coeff of Miller 12.8 Plt Count 276 MPV 10.3 Immature Gran % (Auto) 0.3 Neut % (Auto) 71.3 Lymph % (Auto) 17.0 Woodward % (Auto) 7.3 Eos % (Auto) 3.7 Baso % (Auto) 0.4 Immature Gran # (Auto) 0.03 H Neut # (Auto) 6.85 H Lymph # (Auto) 1.63 Woodward # (Auto) 0.70 H Eos # (Auto) 0.36 Baso # (Auto) 0.04 PT 11.0 INR 1.0 APTT 29.7 PTT Ratio 1.1 D-Dimer < 190 Sodium 139 Potassium 3.7 Chloride 104 Carbon Dioxide 28 Anion Gap 7.0 BUN 16 Creatinine 1.12 Est Cr Clr Drug Dosing 96.3 Est GFR ( Amer) 88.3 Est GFR (Non-Af Amer) 76.2 BUN/Creatinine Ratio 14.4 Glucose 165 H Calcium 9.1 Phosphorus 3.3 Magnesium 2.1 Total Bilirubin 0.6 Direct Bilirubin 0.1 AST 22 ALT 37 Alkaline Phosphatase 39 L Troponin I 1.040 H* Total Protein 7.3 Albumin 4.2 Globulin 3.1 Albumin/Globulin Ratio 1.4 Lipase 97 Influenza Type A (PCR) Influenza Type B (PCR) SARS-CoV-2 RNA (RT-PCR) 01/15/20 01/15/20 01/15/20 15:17 15:17 18:23 WBC RBC Hgb Hct MCV MCH MCHC RDW Std Deviation RDW Coeff of Miller Plt Count MPV Immature Gran % (Auto) Neut % (Auto) Lymph % (Auto) Woodward % (Auto) Eos % (Auto) Baso % (Auto) Immature Gran # (Auto) Neut # (Auto) Lymph # (Auto) Woodward # (Auto) Eos # (Auto) Baso # (Auto) PT INR APTT PTT Ratio D-Dimer Sodium Potassium Chloride Carbon Dioxide Anion Gap BUN Creatinine Est Cr Clr Drug Dosing Est GFR ( Amer) Est GFR (Non-Af Amer) BUN/Creatinine Ratio Glucose Calcium Phosphorus Magnesium Total Bilirubin Direct Bilirubin AST ALT Alkaline Phosphatase Troponin I 3.610 H* Total Protein Albumin Globulin Albumin/Globulin Ratio Lipase Influenza Type A (PCR) Neg for Influ A Influenza Type B (PCR) Neg for Influ B SARS-CoV-2 RNA (RT-PCR) Pending 01/15/20 01/16/20 01/16/20 21:48 03:37 03:37 WBC 16.28 H RBC 4.72 Hgb 15.7 Hct 44.3 MCV 93.9 MCH 33.3 MCHC 35.4 RDW Std Deviation 43.4 RDW Coeff of Miller 12.6 Plt Count 306 MPV 10.3 Immature Gran % (Auto) Neut % (Auto) Lymph % (Auto) Woodward % (Auto) Eos % (Auto) Baso % (Auto) Immature Gran # (Auto) Neut # (Auto) Lymph # (Auto) Woodward # (Auto) Eos # (Auto) Baso # (Auto) PT INR APTT PTT Ratio D-Dimer Sodium 138 Potassium 4.1 Chloride 106 Carbon Dioxide 25 Anion Gap 7.0 BUN 17 Creatinine 1.09 Est Cr Clr Drug Dosing 97.9 Est GFR ( Amer) 91.2 Est GFR (Non-Af Amer) 78.7 BUN/Creatinine Ratio 15.3 Glucose 133 H Calcium 8.8 Phosphorus Magnesium 1.9 Total Bilirubin Direct Bilirubin AST ALT Alkaline Phosphatase Troponin I 8.780 H* 19.200 H* Total Protein Albumin Globulin Albumin/Globulin Ratio Lipase Influenza Type A (PCR) Influenza Type B (PCR) SARS-CoV-2 RNA (RT-PCR) 01/16/20 01/16/20 03:37 11:02 WBC RBC Hgb Hct MCV MCH MCHC RDW Std Deviation RDW Coeff of Miller Plt Count MPV Immature Gran % (Auto) Neut % (Auto) Lymph % (Auto) Woodward % (Auto) Eos % (Auto) Baso % (Auto) Immature Gran # (Auto) Neut # (Auto) Lymph # (Auto) Woodward # (Auto) Eos # (Auto) Baso # (Auto) PT INR APTT 84.6 H* 55.5 H* PTT Ratio 3.0 2.0 D-Dimer Sodium Potassium Chloride Carbon Dioxide Anion Gap BUN Creatinine Est Cr Clr Drug Dosing Est GFR ( Amer) Est GFR (Non-Af Amer) BUN/Creatinine Ratio Glucose Calcium Phosphorus Magnesium Total Bilirubin Direct Bilirubin AST ALT Alkaline Phosphatase Troponin I Total Protein Albumin Globulin Albumin/Globulin Ratio Lipase Influenza Type A (PCR) Influenza Type B (PCR) SARS-CoV-2 RNA (RT-PCR) Medications Administered Active Medications Generic Name Dose Route Start Last Admin Trade Name Freq PRN Reason Stop Dose Admin Acetaminophen 650 mg 01/15/20 19:45 Tylenol PO 02/14/20 19:44 Q4H PRN pain/fever Al Hydrox/Mg Hydrox/Simethicone 30 ml 01/15/20 19:45 Maalox PO 02/14/20 19:44 Q6H PRN Dyspepsia Albuterol 2 puffs 01/15/20 19:45 Ventolin Hfa INH 02/14/20 19:44 Q4H PRN shortness of breath or wheezing Atorvastatin Calcium 40 mg 01/16/20 09:00 01/16/20 08:23 Lipitor PO 02/15/20 08:59 40 mg QAM SACHIN Administration Benzonatate 100 mg 01/15/20 19:45 Tessalon Perle PO 02/14/20 19:44 TID PRN Cough Fluticasone Propionate 1 sprays 01/15/20 21:00 01/16/20 08:22 Flonase NA 02/14/20 20:59 1 sprays BID SACHIN Administration Heparin Sodium/Dextrose 25,000 units in 500 mls @ 28 mls/hr 01/15/20 19:45 01/16/20 07:04 Heparin Sodium/Dextrose IV 02/14/20 19:44 1,400 units/hr .[id number] SACHIN 28 mls/hr Titration Protocol 1,400 UNITS/HR Lisinopril 10 mg 01/16/20 09:00 01/16/20 08:22 Zestril PO 02/15/20 08:59 10 mg DAILY SACHIN Administration Metoprolol Tartrate 25 mg 01/15/20 21:00 01/16/20 08:22 Lopressor PO 02/14/20 20:59 25 mg BID SACHIN Administration Pantoprazole Sodium 40 mg 01/16/20 09:00 01/16/20 08:22 Protonix PO 02/15/20 08:59 40 mg DAILY SACHIN Administration Sodium Chloride 2 sprays 01/15/20 21:00 01/16/20 08:24 [place] Nasal NA 02/14/20 20:59 Not Given BID SACHIN Zolpidem Tartrate 10 mg 01/15/20 19:45 01/15/20 21:47 Ambien PO 02/14/20 19:44 10 mg HS PRN Administration Insomnia PG Care Time/CCT Total # of Minutes Spent Total Time Spent with Patient: Total time spent is greater than 50% in coordination of care (as documented) at patient's floor/unit and/or counseling patient: Coding Level of Care Code 33202 Inpt Consult Level 5 Diagnoses Elevated troponin R79.89 LVH (left ventricular hypertrophy) I51.7 Hyperlipidemia E78.5 Hypertension, essential I10
[2020-01-16 11:34] LABS: Partial Thromboplastin Time 55.5 Seconds (21.0-31.0)
--- NOTE | 2020-01-16 14:00 | Electrocardiogram Report ---
Test Reason : Blood Pressure : / mmHG Vent. Rate : 088 BPM Atrial Rate : 088 BPM P-R Int : 156 ms QRS Dur : 094 ms QT Int : 360 ms P-R-T Axes : 014 -21 013 degrees QTc Int : 435 ms Normal sinus rhythm Normal ECG When compared with ECG of 15-JAN-2020 14:08, Nonspecific T wave abnormality no longer evident in Lateral leads Confirmed by Kelvin Padilla ([id number]) on 01/16/2020 2:00:15 PM Referred By: REFERRED SELF Confirmed By:Kelvin Padilla
--- NOTE | 2020-01-16 14:04 | Electrocardiogram Report ---
Test Reason : Blood Pressure : / mmHG Vent. Rate : 086 BPM Atrial Rate : 086 BPM P-R Int : 162 ms QRS Dur : 094 ms QT Int : 376 ms P-R-T Axes : 024 -15 018 degrees QTc Int : 449 ms Normal sinus rhythm Normal ECG When compared with ECG of 15-JAN-2020 18:19, (unconfirmed) No significant change was found Confirmed by Kelvin Padilla ([id number]) on 01/16/2020 2:03:57 PM Referred By: REFERRED SELF Confirmed By:Kelvin Padilla
--- NOTE | 2020-01-16 14:52 | Electrocardiogram Report ---
Test Reason : Blood Pressure : / mmHG Vent. Rate : 082 BPM Atrial Rate : 082 BPM P-R Int : 160 ms QRS Dur : 092 ms QT Int : 366 ms P-R-T Axes : 012 -14 002 degrees QTc Int : 427 ms Normal sinus rhythm Nonspecific T wave abnormality Abnormal ECG When compared with ECG of 15-JAN-2020 21:44, (unconfirmed) No significant change was found Confirmed by Kelvin Padilla ([id number]) on 01/16/2020 2:51:51 PM Referred By: REFERRED SELF Confirmed By:Kelvin Padilla
--- NOTE | 2020-01-16 15:13 | Post Anesthesia Assessment ---
Date of Service January 16, 2020 Post Sedation Assessment Vital Signs Temp Pulse Pulse Resp BP BP Pulse Ox 01/16/20 08:01 97.9 F 88 20 113/68 95 01/16/20 04:05 97.7 F 89 18 118/79 96 01/15/20 23:14 97.5 F L 87 16 113/76 96 01/15/20 19:30 98.1 F 92 H 20 133/87 96 01/15/20 19:00 84 18 138/84 94 01/15/20 18:30 90 18 146/111 H 97 01/15/20 18:00 84 13 142/87 H 95 01/15/20 17:30 85 19 147/98 H 98 01/15/20 17:02 84 15 149/92 H 98 01/15/20 16:30 87 16 128/84 95 01/15/20 16:00 86 22 131/90 94 01/15/20 15:30 96 H 22 128/97 98 01/15/20 15:17 20 146/93 H 97 Recovery Score Activity: Moves 4 extremities Respiration: Deep Breath/Cough Circulation: +/-20% PreAnes Value Consciousness: Fully Awake Oxygen Saturation: O2 needed for >90% Discharge Sedation Level of Care: Fast Track Phase II Post Sedation Plan On clinical assessment, the patient appears to have tolerated the sedation without complications. Patient is recovering as anticipated. Patient will continue to be monitored by nursing and may be discharged when sedation discharge criteria are met per below protocol. Upon Completions of procedure up to 15 minutes continue every 5 minute vital signs and the P.A.R. score; then discharge to a Phase I or Fast Track to Phase II per the following guidelines: * Discharge Patient to appropriate Phase II area if PAR is 8 or greater or return to pre- procedure baseline. The post - procedure orders will be as directed. * If PAR score is less than 8 or not return to pre-procedure baseline then patient will follow Phase I monitoring till PAR is reached for Phase II. The Phase I may be done in procedure room or may call to secure a Phase I area. * If naloxone or flumazenil are used for reversal, hold in Phase I for continued monitoring from when last reversal dose was given for a minimum of 60 minutes or longer pending the nurse and/or physician discretion of patient condition before discharge to Phase II. Please call the Sedation Physician to re-evaluate and complete post-note for discharge to Phase II area. Do NOT discharge from procedure sedation or Phase 1 until post- sedation evaluation note is complete by procedure /sedation MD Sedation Discharge Instructions to be given to the patient at discharge to home.
--- NOTE | 2020-01-16 15:13 | Hospitalist Progress Note ---
Date of Service January 16, 2020 Assessment & Plan (1) NSTEMI (non-ST elevated myocardial infarction): Troponin was 1.0 on admission; up to 19 by 01/15. EKG shows Q waves in III and aVF as well as TWI inversion in III. This appears stable from prior EKG in 11/2019, though Q waves in III are deeper than before. - ASA 81 mg daily - Continue beta-randy; continue statin, but switch to high intensity (may need to switch back as he has had elbow pain with other statins). - Heparin gtt - Cardiology consulted -> Plan for catheterization today. (2) Cough: Seen by primary care on 01/06 with ongoing symptoms. Per note, he has been having 8-12 weeks of symptoms. Received doxycyline and prednisone with temporary improvement. 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 Covid swab negative. CTA chest on admission showed no acute findings. - Will trial saline sprays and Flonase - Consider outpatient pulmonary testing (PFTs) - Consider stopping lisinopril and switch to losartan (3) Elevated troponin: As above (4) Benign essential hypertension: BP is 115/70 at present. - Continue lisinopril - Started beta randy as above (5) Hyperlipidemia: Continue statin (6) DVT prophylaxis: Heparin gtt, SCDs Admission and Anticipated Discharge Date Admission Date: January 15, 2020 Subjective No chest pain this morning. Reports no fevers/chills, chest pain, shortness of breath, abdominal pain, nausea, or vomiting. Physical Exam Constitutional: WD/WN, vitals as above Eyes: EOM intact bilaterally; no conjunctival abnormality ENMT: external ear and nose normal, oropharynx normal Neck: trachea midline, no thyromegaly normal visual inspection Respiratory: normal respiratory effort, lungs clear to auscultation no respiratory distress Cardiovascular: RRR, no murmur, no edema Gastrointestinal (Abdomen): Inspection/Auscultation: abdomen normal to inspection; abdomen not distended Musculoskeletal: no cyanosis or clubbing, extremities motor strength 5/5 Skin: no rashes, warm and dry Neurologic: moves all extremities and awake Psychiatric: Orientation: alert, oriented to person and cooperative Results & Data Results & Data ([facility]) Vital Signs (Past 12 Hours) Vital Signs Temp Pulse Resp BP Pulse Ox 01/16/20 08:01 36.6 C 88 20 113/68 95 01/16/20 04:05 36.5 C 89 18 118/79 96 PG Care Time/CCT Total # of Minutes Spent Total Time Spent with Patient: Total time spent is greater than 50% in coordination of care (as documented) at patient's floor/unit and/or counseling patient: Coding Level of Care Code 74881 Subseq Hosp Care Lvl 3 Diagnoses NSTEMI (non-ST elevated myocardial infarction) I21.4 Cough R05 Elevated troponin R79.89 Benign essential hypertension I10 Hyperlipidemia E78.5 DVT prophylaxis Z29.9
[2020-01-16] MEDS ORDERED: ONDANSETRON INJ 2 MG/ML 2 ML VIAL ONE (15:14)
--- NOTE | 2020-01-16 15:15 | Cardiac Catheterization ---
ACC Data: Fish And Wildlife Biologist Cardiac Status Clinical evaluation leading to the procedure CAD Presenation: Non STEMI Anginal Classification: CCS III Heart Failure: No Cardiogenic Shock within 24 Hours: No Cardiac Arrest within 24 Hours: No Imaging Studies Past 6 Months: Yes Stress Studies Past 6 Months: Yes Stress Echocardiogram: Yes - Negative Diagnostic Physicians Name: Rohit Garcia MD Status: Elective Closure Device Percutaneous Entry Location: Radial Closure Device: Radial Band Recommendations: PCI without planned CABG PCI Indication: PCI for high risk Non-AXEL Lesion Segment Name: Mid OM 2 Culprit Artery: Yes Stenosis Prior to Rx (%): 95 Chronic Total Occlusion: No IVUS: No FFR: No Pre-Procedure ANGELIQUE Flow: 3 Previously Treated Lesion: No Lesion Complexity: Non-High/Non-C Lesion Length (mm): 15 Thrombus Present: Yes Bifurcation Lesion: No Guidewire Across Lesion: Stenosis Post-Procedure (%): 0 Post-Procedure ANGELIQUE Flow: 3 Devices(s) Deployed: Yes Yes Lesion #2 Segment Name: Mid LAD Culprit Artery: Yes Stenosis Prior to Rx (%): 80 Chronic Total Occlusion: No IVUS: No Pre-Procedure ANGELIQUE Flow: 3 Previously Treated Lesion: No Lesion Complexity: Non-High/Non-C Lesion Length (mm): 12 Thrombus Present: No Bifurcation Lesion: Yes Guidewire Across Lesion: Yes Stenosis Post-Procedure (%): 0 Post-Procedure ANGELIQUE Flow: 3 Devices(s) Deployed: Yes Intraprocedure Events Significant Disection: No Perforation: No Cardiac Cath Procedure Full Procedure Date January 16, 2020 Pre-Procedure Diagnosis Pre-Procedure Diagnosis: Non STEMI AUC Score AUC Score: 8 Post-Procedure Diagnosis Post-Procedure Diagnosis: Severe CAD, Successful PCI and Normal Intracardiac Pressures Procedure(s) Performed Procedure(s) Performed: Coronary Angiography, Left Heart Cath and Drug Eluting Stent Director Statistical Programming Rohit Garcia MD Glass Blower Helper(s) Deja Estimated Blood Loss Estimated Blood Loss: 15 Medication(s) Medication(s): Fentanyl, Heparin, Lidocaine 1%, Nicardipine, Nitroglycerin and V ersed Medication(s): Ticagrelor Summary of Findings Indication: NSTEMI Access: 6 Fr slender right radial artery Catheters: [place], EBU 3.5 guide Findings: LM -large caliber vessel, angiographically normal LAD -medium caliber vessel, proximal irregularity, 80% focal stenosis at takeoff of small third diagonal, mild distal disease as wraps around apex. Medium caliber second diagonal with 60 to 70% ostial stenosis. Circumflex - medium caliber, large OM 2 with 95% acute mid stenosis. Distal circumflex with luminal irregularities RCA - dominant, medium caliber, mid segment with mild diffuse disease, distal vessel tapers prior to 100% chronic occlusion prior to PDA. PDA/PLB fill via [id number] collaterals. LVEDP -16 -- PCI -- Antithrombotic therapy: Heparin, ticagrelor Procedure: Left main cannulated with EBU 3.5 guide Central Supply Manager 50 wire passed across OM 2 lesion into distal vessel Mid OM 2 lesion predilated with 2.5 compliant balloon With the aid of a guideliner dilated lesion stented with 2.5 x 22 mm [place] drug- eluting stent Stent post-dilated with 2.5 noncompliant balloon IC vasodilators administered for spasm Post procedure ANGELIQUE 3 flow, stent well expanded with minimal residual stenosis and no apparent cardiac complications. Central Supply Manager 50 wire removed from circumflex and passed across mid LAD stenosis into distal vessel Mid LAD dilated with 2.5 compliant balloon Mid LAD stented with 2.75 x 18 mm [place] drug-eluting stent Stent postdilated with 3.0 NC balloon IC vasodilators administered for spasm Post procedure ANGELIQUE 3 flow, stent well expanded with minimal residual stenosis and no apparent cardiac complications. Arterial Closure: TR band Summary: 1. Severe multi-vessel coronary artery disease - 95% acute mid OM 2 (likely culprit) 80% focal mid LAD 100% chronic distal RCA. PDA, PLB's fill via [id number] collaterals. 2. Normal intracardiac filling pressure 3. Successful PCI of mid OM 2 with single drug-eluting stent (2.5 x 22 mm [place]). 4. Successful PCI of mid LAD with single drug-eluting stent (2.75 x 18 mm Bern[place]; postdilated with 3.0 NC). 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 Hemodynamics Rest Ao:: 122/70/93 Final Ao: 122/73/96 LV: 123/17 Recommendations Recommendations: PCI without planned CABG Specimens Specimens: None Radiation Exposure (mGy) 4278 Contrast (mls) 145 Fluids (cc crystalloids) Fluids (cc crystalloids): 180 Drains Drains: None Procedural Complication(s) None Disposition PCU I attest to the content of the Intraoperative Record and any orders documented therein. Any exceptions are noted below. [facility] Card Cath Procedure Codes Cardiac Catheterization Procedure 1: Cardiovascular Cath Procedures: 88235 Coronaries and LHC (+/-LV) Moderate Sedation Procedure 1: Sedation/Anesthesia: 66215 Mod Sedation by the same physician;Init15 Min Child Age 5 & Up Procedure 2: Sedation/Anesthesia: 73797 Mod Sedation by the same physician; Ea [id number] Minutes Stenting Procedure 1: Cardiovascular Stent Procedures: 36815 Perc transcatheter placement of intracoronary stent(s), with ang Procedure 2: Cardiovascular Stent Procedures: 01442 Ea addl branch of a major coronary artery PG Care Time/CCT Total # of Minutes Spent Total Time Spent with Patient: Total time spent is greater than 50% in coordination of care (as documented) at patient's floor/unit and/or counseling patient:
[2020-01-16] MEDS ORDERED: SODIUM CHLORIDE 0.9% 1000ML 1,000 ML IV SCH (15:45)
[2020-01-16] MEDS: ACETAMINOPHEN 325 MG TAB PO PRN (16:09)
[2020-01-16] MEDS: TICAGRELOR 90 MG TAB PO SCH (16:15)
[2020-01-16] MEDS ORDERED: HydrALAZINE HCL 20 MG/ML VIAL IV PRN (16:51)
[2020-01-16] MEDS ORDERED: MoRPHine SULFATE 2 MG/ML CARP IV STA (19:19)
[2020-01-16] MEDS: ZOLPIDEM TARTRATE 10 MG TAB PO PRN (21:19)
[2020-01-17 05:37] LABS: Hematocrit (blood only) 42.8 % (42-52); Hemoglobin 14.9 g/dL (14.0-18.0); Mean Corpuscular Hemoglobin 33.5 pg (25-34); Mean Corpuscular Hgb Conc 34.8 g/dL (32-36); Mean Corpuscular Volume 96.2 fL (80-100); Mean Platelet Volume 9.9 fL (7.4-10.4); Platelet Count 257 K/uL (130-400); RDW Coefficient of Variation 12.9 % (11.5-14.5); RDW Standard Deviation 44.9 fL (36.4-46.3); Red Blood Count 4.45 M/uL (4.7-6.1); White Blood Count 11.63 K/uL (4.8-10.8)
[2020-01-17 06:07] LABS: Calcium 8.6 mg/dl (8.5-10.1); Creatinine Clr Calc Pharmacy 93.6 ml/min; Est GFR (African American) 86.4; Est GFR (Non-African American) 74.6; Potassium 4.1 mmol/L (3.5-5.1)
[2020-01-17 06:28] LABS: Troponin I 55.7 ng/ml (0-0.045)
[2020-01-17] MEDS: ACETAMINOPHEN 325 MG TAB PO PRN (08:04)
[2020-01-17] MEDS: PANTOprazole 40 MG TAB PO SCH (08:05)
[2020-01-17] MEDS: METOPROLOL TARTRATE 25 MG TAB PO SCH (08:05)
[2020-01-17] MEDS: lisinopriL 10 MG TAB PO SCH (08:05)
[2020-01-17] MEDS: ATORVASTATIN 40 MG TAB PO SCH (08:05)
[2020-01-17] MEDS: TICAGRELOR 90 MG TAB PO SCH (08:06)
[2020-01-17] MEDS: SODIUM CHLORIDE 0.65% NA SOLN 45 ML (OCEAN) SCH (08:06)
[2020-01-17] MEDS: FLUTICASONE PROPIONATE NA SPR 16 GM BTL SCH (08:06)
[2020-01-17 11:25] VITALS: PULSE 73; TEMP 97.9; O2SAT 97
--- NOTE | 2020-01-17 11:55 | Cardiology Progress Note ---
Date of Service January 17, 2020 Assessment & Plan (1) Multi-vessel coronary artery stenosis: -Post PCI to OM 2, mid LAD. Chronically occluded right with [id number] collateral 2. Nonsustained VT 3. Hypertension 4. Dyslipidemia Patient chest pain-free this morning. Hemodynamically stable. Brief episodes of nonsustained VT overnight No access site complications Post procedure labs stable Up walking halls later today. Remains chest pain-free/electrically stable okay with discharge today. Home on DAPT with aspirin, ticagrelor for least 1 year Continue current beta-randy, ROSA inhibitor Home on high intensity statin, long-term LDL goal less than 70 Follow-up with cardiology in 2 weeks. We discussed cardiac rehab at that time Admission and Anticipated Discharge Date Admission Date: January 15, 2020 Subjective Mild residual chest pain last night along with new headache. Both symptoms have resolved and feeling well this morning. 2 episodes of nonsustained VT, max 12 beats overnight. Asymptomatic No significant pain at right radial access site Review of Systems Review of Systems: All systems reviewed & are unremarkable except as noted in HPI & below Physical Exam Physical Exam: General: Comfortable, no acute distress HEENT: Sclerae anicteric, mucous membranes moist Lungs: Clear to auscultation bilaterally, no rhonchi or wheezes Cardiac: Regular rate and rhythm, no murmurs. No JVD. Abdomen: Soft, nontender, nondistended, positive bowel sounds. Extremities: Warm, well perfused, no edema. Right radial artery access site with no ecchymosis, hematoma. Distal pulse and sensation intact. Skin: No rashes or lesions. Neuro: Nonfocal Psych: Alert orient x3, normal affect and mood Results & Data ([facility]) Vital Signs (Past 12 Hours) Vital Signs Temp Pulse Pulse Resp BP BP Pulse Ox 01/17/20 11:24 97.9 F 73 20 119/74 97 01/17/20 09:00 86 01/17/20 08:00 98.4 F 80 20 134/81 96 01/17/20 03:33 98.4 F 77 17 117/74 97 PG Care Time/CCT Total # of Minutes Spent Total Time Spent with Patient: Total time spent is greater than 50% in coordination of care (as documented) at patient's floor/unit and/or counseling patient: Coding Level of Care Code 39371 Subseq Hosp Care Lvl 3 Diagnoses Multi-vessel coronary artery stenosis I25.10
[2020-01-17 14:21] VITALS: BP 117/74
--- NOTE | 2020-01-17 16:15 | Discharge Summary ---
Date of Service January 17, 2020 Principal Diagnosis NSTEMI Discharge Exam Constitutional WD/WN, vitals as above Eyes EOM intact bilaterally; no conjunctival abnormality ENMT external ear and nose normal, oropharynx normal Neck trachea midline, no thyromegaly normal visual inspection Respiratory normal respiratory effort, lungs clear to auscultation no respiratory distress Cardiovascular RRR, no murmur, no edema Gastrointestinal (Abdomen) Inspection/Auscultation: abdomen normal to inspection; abdomen not distended Musculoskeletal no cyanosis or clubbing, extremities motor strength 5/5 Skin no rashes, warm and dry Neurologic moves all extremities and awake Psychiatric Orientation: alert, oriented to person and cooperative Discharge Data Allergies Allergy/AdvReac Type Severity Reaction Status Date / Time No Known Drug Allergies Allergy Unknown Verified 01/15/20 14:25 Consultations 01/15/20 17:51 ED Decision to Admit Stat 01/15/20 19:45 Consult Cardiology Routine Procedures Performed Operation Date: 01/16/20 10:00 Actual Procedures p Drug Eluting Stent SGl Vessel - Kristofer Garcia MD s Drug Eluting Stent each ADDTL Vessel - Kristofer Garcia MD s Cath, Left with Cors and Vent - Kristofer Garcia MD s Cineradiography w/Routine Exam - Kristofer Garcia MD Ordered Studies 01/15/20 16:15 CT angio chest PE protocol Stat 01/16/20 08:07 CL Cath Imgs for PACS use only Routine Hospital Course (1) NSTEMI (non-ST elevated myocardial infarction): Troponin peaked at 19 by 01/15. Cardiac cath showed 1 LAD lesion and one OM2 lesion which were both stented and a chronically occluded distal RCA. - ASA 81 mg daily - Ticagrelor 90 mg BID x 1 year. - Continue beta-randy; continue atorvastatin - Continue ACEi (2) Cough: Seen by primary care on 01/06 with ongoing symptoms. Per note, he has been having 8-12 weeks of symptoms. Received doxycyline and prednisone with temporary improvement. 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 Covid swab negative. CTA chest on admission showed no acute findings. - Will trial saline sprays and Flonase for one week. - Consider outpatient pulmonary testing (PFTs) - Consider stopping lisinopril and switch to losartan if cough continues. (3) Elevated troponin: As above (4) Benign essential hypertension: BP is 120/70 on discharge. - Continue lisinopril - Started beta randy as above (5) Hyperlipidemia: Continue statin (6) DVT prophylaxis: Total Time Total Time Spent Total Time Spent (In Minutes): 35 Discharge Plan Discharge Items Patient Disposition: Home - Self-Care Reason For Visit: NSTEMI Discharge Diagnosis: Heart attack Activity: Resume your previous activity Non-emergency contact: Primary Care Provider and Environment Friendly Landscape Designer Call non-emergency contact if: your symptoms worsen and your temperature is above 101 Follow-up/Referrals: Ryanne Moreno DO [Primary Care Provider] - Kristofer Garcia MD [Physician] - (Please see Dr. Garcia in 2 weeks for follow up.) Diet: Heart Healthy Addtl Attending Provider Instructions: You were admitted to the hospital with a heart attack. The technical name is a non-ST elevation myocardial infarction (NSTEMI) which means you did not have a 100% blockage of the artery, but enough that you needed 2 stents. There was also one other blockage that must have been long-standing because blood flow had re-constituted around the blocked area. We are sending you home on some new medications to keep your heart healthy: 1) Aspirin 81 mg every day (classically called a "baby aspirin") 2) Brilinta (ticagrelor) 90 mg two times per day -> Works as a team with aspirin 3) Metoprolol XL 50 mg every day which will help lower oxygen demand on your heart 4) Atorvastatin (Lipitor) 40 mg every day -> This is stronger than lovastatin, and you may need to work with your PCP regarding this if it causes elbow pain I also recommended Flonase to you to see if this helps with your cough. If the cough isn't better within a week of using this, you can stop. At that point, I would talk with your PCP about considering a switch off the lisinopril as this can cause a cough at times as well. Pending Studies at Discharge: No Stand-Alone Forms: My [facility] Treato, Smoking Cessation Medications and DC Order Prescriptions: New Brilinta 90 mg Tablet 90 mg PO BID Qty: 60 RF: 0 atorvastatin 40 mg Tablet 40 mg PO QAM Qty: 30 RF: 0 fluticasone propionate [Flonase Allergy Relief] 50 mcg/actuation spray,suspension 1 sprays INTNAS DAILY Qty: 9.9 RF: 0 aspirin [Aspir-81] 81 mg tablet,delayed release (DR/EC) 81 mg PO DAILY Qty: 30 RF: 0 metoprolol succinate 50 mg tablet extended release 24 hr 50 mg PO DAILY Qty: 30 RF: 0 Continued albuterol sulfate [Ventolin HFA] 90 mcg/actuation HFA aerosol inhaler 1 - 2 puffs INH Q6H PRN (Reason: shortness of breath or wheezing) Qty: 18 RF: 5 pantoprazole [Protonix] 40 mg tablet,delayed release (DR/EC) 40 mg PO DAILY Qty: 90 RF: 1 zolpidem 10 mg tablet 10 mg PO HS Qty: 30 RF: 5 loratadine [Claritin] 10 mg tablet 10 mg PO DAILY PRN (Reason: allergy symptoms) Qty: 30 RF: 0 lisinopril 10 mg tablet 10 mg PO DAILY RF: 0 Discontinued lovastatin 20 mg tablet 20 mg PO DAILY Qty: 30 RF: 5 benzonatate 200 mg capsule 200 mg PO TID PRN (Reason: cough) Qty: 20 RF: 0 guaifenesin 400 mg tablet 400 mg PO QID 7 Days Qty: 28 RF: 0 Discharge Orders: Discharge Order (Routine); Ordered 01/17/20 Ordered By: Devyn Bains Admission Data Admit Date/Time: 01/15/20 18:19 Attending Provider: Devyn Bains Admit Provider: Devyn Bains Primary Care Provider: Ryanne Moreno Other Providers: Devyn Bains ; Kristofer Wood Other Interventions: Discharge Summary Assessment (RN) Last Done: 01/17/20 14:18 DC Date/Time DO NOT enter until pt leaves facility: 01/17/20 16:05 Coding Level of Care Code D/C Day Management >30 mins Diagnoses NSTEMI (non-ST elevated myocardial infarction) I21.4 Cough R05 Elevated troponin R79.89 Benign essential hypertension I10 Hyperlipidemia E78.5 DVT prophylaxis Z29.9
== END 2020-01-17 16:05 | disposition home or self-care (01) | DRG 247 ==
LOC: ED 13:54 → 2S 18:19